=== PATIENT | female | born 1985 ===

== ENCOUNTER 2017-12-01 06:09 | Inpatient (IN) | payer OTHER ==
[~2017-12-01] VITALS: Ht 154.9 cm; Wt 2.7 kg
[2017-12-01] MEDS ORDERED: PRENATAL TABLE1 EAC2 PO (12:20)
[2017-12-04] MEDS ORDERED: FERROUS SULFAT325 M1 PO (13:51)
[2017-12-04] MEDS ORDERED: OXYC1TAB9 PO (13:51)
[2017-12-04] MEDS ORDERED: DOCUSATE SODIU100 MG PO (13:51)
[2017-12-04] MEDS ORDERED: PREPLUS CA-FE1 EACH PO (13:51)
[2017-12-04] MEDS ORDERED: GAS RELIEF125 MG PO (13:51)
== END 2017-12-04 13:53 | DRG 788 ==
LOC: LDR 06:09 → SURG-SUITE 14:10
PROVIDERS: Obstetrics & Gynecology
PROC: 4A1HXCZ Monitoring of Products of Conception, Cardiac Rate, External Approach (ICD-10-PCS; 2017-12-01)
PROC: 4A033R1 Measurement of Arterial Saturation, Peripheral, Percutaneous Approach (ICD-10-PCS; 2017-12-01)
PROC: 10D00Z1 Extraction of Products of Conception, Low, Open Approach (ICD-10-PCS; principal; 2017-12-01 12:00)
DX: O34.211 Maternal care for low transverse scar from previous cesarean delivery (principal); O75.82 Onset (spontaneous) of labor after 37 completed weeks of gestation but before 39 completed weeks gestation, with delivery by (planned) cesarean section; Z3A.39 39 weeks gestation of pregnancy; Z37.0 Single live birth